=== PATIENT | female | born 1960 | race Two or more races ===

== ENCOUNTER 2017-01-13 06:39 | Day surgery (SDC) | payer BC ==
[~2017-01-13] VITALS: Ht 162.6 cm; Wt 54.4 kg
[2017-01-13] VITALS (9 sets, daily range): BP systolic 120–142; BP diastolic 68–81
[~2017-01-13 06:39] MED LIST: ATENOLOL50 MG ORAL; BIOTIN2500 MCG PO; COLCHICINE0.6 M1 PO; FLUOXETINE HCL10 MG ORAL; KLONOPIN1 MG ORAL; MULTIVITAMINS1 EAC2 ORAL; OMEPRAZOLE20 M2 ORAL; PROZAC20 MG ORAL; VASOTEC5 MG ORAL
--- NOTE | 2017-01-13 07:13 | Pre-Procedure Note/Attestation ---
Pre-Procedure Note/Attestation Complete Prior to Procedure Procedure Narrative: repair of umbilical hernia Indications for Procedure Pre-Operative Diagnosis: umbilical hernia Attestation I attest that I discussed the nature of the procedure; its benefits; risks and complications; and alternatives (and the risks and benefits of such alternatives ), prior to the procedure, with the patient (or the patient's legal route sales representative). I attest that, if there was a reasonable possibility of needing a blood transfusion, the patient (or the patient's legal route sales representative) was given the [facility] of Health Services standardized written summary, pursuant to the [place] Blood Safety Act ([place] Health and Safety Code # 1645, as amended). I attest that I re-evaluated the patient just prior to the surgery and that there has been no change in the patient's H&P, except as documented below: CHARITY GARCIA Jan 13, 2017 07:13
--- NOTE | 2017-01-13 07:13 | Pre-Procedure Note/Attestation ---
Pre-Procedure Note/Attestation Complete Prior to Procedure Procedure Narrative: repair of umbilical hernia Indications for Procedure Pre-Operative Diagnosis: umbilical hernia Attestation I attest that I discussed the nature of the procedure; its benefits; risks and complications; and alternatives (and the risks and benefits of such alternatives ), prior to the procedure, with the patient (or the patient's legal tour sales representative). I attest that, if there was a reasonable possibility of needing a blood transfusion, the patient (or the patient's legal tour sales representative) was given the [facility] of Health Services standardized written summary, pursuant to the [place] Blood Safety Act ([place] Health and Safety Code # 1645, as amended). I attest that I re-evaluated the patient just prior to the surgery and that there has been no change in the patient's H&P, except as documented below: CHARITY GARCIA Jan 13, 2017 07:13
--- NOTE | 2017-01-13 07:13 | Pre-Procedure Note/Attestation ---
Pre-Procedure Note/Attestation Complete Prior to Procedure Procedure Narrative: repair of umbilical hernia Indications for Procedure Pre-Operative Diagnosis: umbilical hernia Attestation I attest that I discussed the nature of the procedure; its benefits; risks and complications; and alternatives (and the risks and benefits of such alternatives ), prior to the procedure, with the patient (or the patient's legal rental representative). I attest that, if there was a reasonable possibility of needing a blood transfusion, the patient (or the patient's legal rental representative) was given the [facility] of Health Services standardized written summary, pursuant to the [place] Blood Safety Act ([place] Health and Safety Code # 1645, as amended). I attest that I re-evaluated the patient just prior to the surgery and that there has been no change in the patient's H&P, except as documented below: CHARITY GARCIA Jan 13, 2017 07:13
[2017-01-13] MEDS ORDERED: OMEPRAZOLE20 M2 ORAL (07:17)
[2017-01-13] MEDS ORDERED: Bupivacaine w/Epi 0.75% 30ml Vial INJ ONE (07:55)
[2017-01-13] MEDS ORDERED: NS Irrig 1000ml IRRIG ONE (08:25)
[2017-01-13] MEDS ORDERED: ePHEDrine 50mg/ml Inj ONE (08:30)
[2017-01-13] MEDS ORDERED: Midazolam 2mg/2ml Inj ONE (08:30)
[2017-01-13] MEDS ORDERED: Propofol 200mg/20ml IV ONE (08:30)
[2017-01-13] MEDS ORDERED: Sterile Water Irrig 1000ml IRRIG ONE (08:30)
[2017-01-13] MEDS ORDERED: Metoclopramide 10mg/2ml Inj ONE (08:30)
[2017-01-13] MEDS ORDERED: LR 1000ml ONE (08:30)
[2017-01-13] MEDS ORDERED: fentaNYL 100 mcg/2 mL IV ONE (08:30)
[2017-01-13] MEDS ORDERED: Glycopyrrolate 0.2mg/ml 1ml Vial ONE (08:30)
--- NOTE | 2017-01-13 09:39 | Brief Operative Note ---
Immediate Post Operative Note Operative Note Pre-op Diagnosis: umbilical hernia Procedure: repair of umbilical hernia with mesh Post-op Diagnosis: same as pre-op Surgeon: kristy Anesthesiologist: jasmine Anesthesia: general Specimen: none Complications: none Condition: stable Fluids: lr Estimated Blood Loss: minimal Drains: none Implant(s) used?: Yes - Ventralex 1.7 " diameter CHARITY GARCIA Jan 13, 2017 09:39
--- NOTE | 2017-01-13 09:56 | Immediate Post-Op Evaluation ---
Immediate Post-Op Evalulation Immediate Post-Op Evalulation Date of Evaluation: Jan 13, 2017 Time of Evaluation: 09:48 IV Fluids: 900 ml LR Estimated Blood Loss: less than 5 ml Urinary Output: 0 Blood Pressure Systolic: 148 Blood Pressure Diastolic: 86 Pulse Rate: 71 Respiratory Rate: 14 O2 Sat by Pulse Oximetry: 100 Temperature (Fahrenheit): 97.4 Pain Score (1-10): 0 Nausea: No Vomiting: No Patient Status: awake, reacts, patent Hydration Status: adequate Drug: ancef 1 gm IV per surgeon request Given Within 1 Hr of Incision: Yes Time Given: 08:40 Abby Gregorio CRNA Jan 13, 2017 09:56
--- NOTE | 2017-01-13 09:57 | 48 Hour Post Anesthesia Eval ---
Post Anesthesia Evaluation Date of Evaluation: Jan 13, 2017 Time of Evaluation: 09:56 Blood Pressure Systolic: 126 0: 68 Pulse Rate: 61 Respiratory Rate: 18 Temperature (Fahrenheit): 97.5 O2 Sat by Pulse Oximetry: 100 Airway: patent Nausea: No Vomiting: No Pain Intensity: 0 Hydration Status: adequate Mental Status/LOC: patient returned to baseline Follow-up care needed: patient intructions given Abby Gregorio CRNA Jan 13, 2017 09:57
[2017-01-13] MEDS ORDERED: fentaNYL 100 mcg/2 mL IV PRN (10:00)
[2017-01-13] MEDS ORDERED: Ketorolac 30mg Inj IV PRN (10:00)
--- NOTE | 2017-01-13 10:00 | Anethesia Preoperative Eval ---
Anesthesia Pre-op PMH/ROS General Date of Evaluation: Jan 13, 2017 Time of Evaluation: 08:15 Anesthesiologist: Jg ASA Score: ASA 2 Mallampati Score Class I : Soft palate, uvula, fauces, pillars visible Class II: Soft palate, uvula, fauces visible Class III: Soft palate, base of uvula visible Class IV: Only hard plate visible Mallampati Classification: Class I Surgeon: Nancy Diagnosis: hernia Surgical Procedure: umbilical hernia repair Anesthesia History: none Family History: no anesthesia problems Allergies: Coded Allergies: CODEINE (Verified Allergy, Unknown, 11/06/14) SULFA (SULFONAMIDE ANTIBIOTICS) (Verified Allergy, Unknown, 11/06/14) ACETAMINOPHEN (Verified Adverse Reaction, Severe, GET VERY SICK, 06/28/15) HYDROCODONE (Verified Adverse Reaction, Severe, GET VERY SICK, 06/28/15) MEPERIDINE (Verified Adverse Reaction, Severe, Intractable Vomiting, ) OXYCODONE (Verified Adverse Reaction, Severe, VERY SICK, 06/28/15) Medications: see eMAR Past Medical History Cardiovascular: Reports: HTN, other - high cholosterol Pulmonary: Denies: asthma, COPD, [place], other Gastrointestinal/Genitourinary: Reports: GERD - occasional, controlled with diet Neurologic/Psychiatric: Reports: depression/anxiety Endocrine: Denies: DM, hypothyroidism, steroids, other HEENT: Denies: cataract (L), cataract (R), glaucoma, [place] (L), [place] (R), other Hematology/Immune: Denies: anemia, DVT, bleeding disorder, other Musculoskeletal/Integumentary: Denies: OA, RA, DJD, DDD, edema, other Anesthesia Pre-op Phys. Exam Physician Exam Last Vital Signs Date Time Temp Pulse Resp B/P (MAP) Pulse Ox O2 Delivery O2 Flow Rate FiO2 01/13/17 09:50 65 11 122/70 100 Simple Mask 6.0 01/13/17 09:45 97.4 Constitutional: NAD Neurologic: CN 2-12 intact Cardiovascular: RRR Respiratory: CTA Gastrointestinal: S/NT/ND Airway Exam Mallampati Score: Class I MO: full ROM: full Teeth: intact Dentures: no upper, no lower Anesthesia Pre-op A/P Labs reviewed Studies Pre-op Studies: EKG - NSR Risk Assessment & Plan Plan: general with LMA Status Change Before Surgery: No Pre-Antibiotics Drug: ancef 1 gm iv per surgeon Given Within 1 Hr of Incision: Yes Time Given: 08:40 Abby Gregorio CRNA Jan 13, 2017 10:00
--- NOTE | 2017-01-13 10:00 | Anethesia Preoperative Eval ---
Anesthesia Pre-op PMH/ROS General Date of Evaluation: Jan 13, 2017 Time of Evaluation: 08:15 Anesthesiologist: Jg ASA Score: ASA 2 Mallampati Score Class I : Soft palate, uvula, fauces, pillars visible Class II: Soft palate, uvula, fauces visible Class III: Soft palate, base of uvula visible Class IV: Only hard plate visible Mallampati Classification: Class I Surgeon: Nancy Diagnosis: hernia Surgical Procedure: umbilical hernia repair Anesthesia History: none Family History: no anesthesia problems Allergies: Coded Allergies: CODEINE (Verified Allergy, Unknown, 11/06/14) SULFA (SULFONAMIDE ANTIBIOTICS) (Verified Allergy, Unknown, 11/06/14) ACETAMINOPHEN (Verified Adverse Reaction, Severe, GET VERY SICK, 06/28/15) HYDROCODONE (Verified Adverse Reaction, Severe, GET VERY SICK, 06/28/15) MEPERIDINE (Verified Adverse Reaction, Severe, Intractable Vomiting, ) OXYCODONE (Verified Adverse Reaction, Severe, VERY SICK, 06/28/15) Medications: see eMAR Past Medical History Cardiovascular: Reports: HTN, other - high cholosterol Pulmonary: Denies: asthma, COPD, [place], other Gastrointestinal/Genitourinary: Reports: GERD - occasional, controlled with diet Neurologic/Psychiatric: Reports: depression/anxiety Endocrine: Denies: DM, hypothyroidism, steroids, other HEENT: Denies: cataract (L), cataract (R), glaucoma, [place] (L), [place] (R), other Hematology/Immune: Denies: anemia, DVT, bleeding disorder, other Musculoskeletal/Integumentary: Denies: OA, RA, DJD, DDD, edema, other Anesthesia Pre-op Phys. Exam Physician Exam Last Vital Signs Date Time Temp Pulse Resp B/P (MAP) Pulse Ox O2 Delivery O2 Flow Rate FiO2 01/13/17 09:50 65 11 122/70 100 Simple Mask 6.0 01/13/17 09:45 97.4 Constitutional: NAD Neurologic: CN 2-12 intact Cardiovascular: RRR Respiratory: CTA Gastrointestinal: S/NT/ND Airway Exam Mallampati Score: Class I MO: full ROM: full Teeth: intact Dentures: no upper, no lower Anesthesia Pre-op A/P Labs reviewed Studies Pre-op Studies: EKG - NSR Risk Assessment & Plan Plan: general with LMA Status Change Before Surgery: No Pre-Antibiotics Drug: ancef 1 gm iv per surgeon Given Within 1 Hr of Incision: Yes Time Given: 08:40 Abby Gregorio CRNA Jan 13, 2017 10:00
--- NOTE | 2017-01-13 15:47 | Operative Note - Dictated ---
DATE OF OPERATION: 01/13/2017 SURGEON: Jamison Cruz M.D. PROJECT DEVELOPMENT DIRECTOR: None. ANESTHESIOLOGIST: Dr. Gregorio. ANESTHESIA: General. PREOPERATIVE DIAGNOSIS: Umbilical hernia, chronically incarcerated. POSTOPERATIVE DIAGNOSIS: Umbilical hernia, chronically incarcerated. NAME OF OPERATION: Repair of chronically incarcerated umbilical hernia with Ventralex mesh. FINDINGS AND INDICATIONS: The patient is a 56-year-old thin Latin female with a history of painful chronically incarcerated umbilical hernia, bulging somewhat to the top into the left lower months to years now, but because of increasing symptoms, she sought attention from her attending physician who referred her to me for evaluation and surgical care. After I examined her and I explained to her the indications, risks, benefits, and possible complications etc. as well as the fact that I will be retiring in two weeks, she accepted to proceed with the operation, which was done in an uneventful fashion. She indeed had a moderate amount of fatty material within the hernia sac, which was fairly narrow neck approximately 1.5 to 2 cm in diameter, which was then carefully cleansed all way around and the contents of the hernia all replaced back into the abdominal cavity including the sac, and the mesh repair done uneventfully as described. DESCRIPTION OF PROCEDURE: With the patient lying in the supine position on the operating table, under general anesthesia with the entire abdominal region prepped and draped in usual sterile fashion with Betadine, a supraumbilical curvilinear incision was made, subcutaneous tissues were divided. The hernia sac was then identified, carefully cleansed and was dissected all the way down into the entrance into the peritoneum all the way around and all contents carefully replaced back into the abdominal cavity. The peritoneal edges were then cleansed inside so to be able to deploy a 1.7 inch in diameter Ventralex hernia repair mesh, using four sutures at the 12 o'clock, 3 o'clock, 6 o'clock, and 9 o'clock positions of 2-0 Prolene material deploying the mesh below the fascia through and through the fascia and then tied inside the peritoneum. Having done so, an excellent repair was obtained. The area was irrigated. Hemostasis was double checked, which was adequate and then the space was closed by approximating the first of the edges of the fascia with a continuous 2-0 Vicryl suture, subcutaneous tissues with interrupted 3-0 Vicryl suture recreating a nice umbilical dimple and the skin with 4-0 Vicryl subcuticular sutures and Steri-Strips. Marcaine 0.5% with epinephrine 18 mL was injected for long-acting local anesthetic. The patient tolerated the procedure well. Estimated blood loss was less than 5 mL. Sponge and needle counts were correct. She went to the recovery room in stable condition. Jamison Cruz M.D. DR: TALIA JOB#: [id number] CC:
== END 2017-01-13 11:55 | disposition home or self-care (01) ==
LOC: SUR 06:39
DX: K42.9 Umbilical hernia without obstruction or gangrene (principal); I10 Essential (primary) hypertension; K21.9 Gastro-esophageal reflux disease without esophagitis; F41.9 Anxiety disorder, unspecified; F32.9 Major depressive disorder, single episode, unspecified; E78.00 Pure hypercholesterolemia, unspecified; Z90.49 Acquired absence of other specified parts of digestive tract; Z90.89 Acquired absence of other organs; Z88.2 Allergy status to sulfonamides; Z88.6 Allergy status to analgesic agent; Z82.49 Family history of ischemic heart disease and other diseases of the circulatory system
CPT/HCPCS: 49587; C1781; J0690; J1885; J2250; J2405; J2704; J2765; J3010; J7120; 94003; 94150